=== PATIENT | male | born 1975 | race Caucasian/White ===

== ENCOUNTER 2024-04-25 01:43 | Emergency (ER) | payer BC, OTHER ==
[~2024-04-25] VITALS: Ht 180.3 cm; Wt 74.8 kg
[2024-04-25] MEDS ORDERED: ALPR0.255 PO (01:57)
[2024-04-25] MEDS ORDERED: METO-356 PO (01:57)
[2024-04-25 02:40] LABS: BASOPHILS % (AUTO) 0.4 % (0.0-2.0); EOSINOPHILS # (AUTO) 0.1 K/uL (0.0-0.7); EOSINOPHILS % (AUTO) 0.8 % (0.0-7.0); HEMATOCRIT 39.8 % (36.7-47.1); HEMOGLOBIN 13.7 g/dL (12.5-16.3); LYMPHOCYTES # (AUTO) 1.6 K/uL (0.8-4.8); LYMPHOCYTES % (AUTO) 20.4 % (20.5-51.5); MEAN CORPUSCULAR HEMOGLOBIN 31.2 uug (23.8-33.4); MEAN CORPUSCULAR HGB CONC 35 g/dL (32.5-36.3); MEAN CORPUSCULAR VOLUME 90.6 fL (73.0-96.2); MONOCYTES # (AUTO) 0.7 K/uL (0.1-1.30); MONOCYTES % (AUTO) 8.6 % (0.0-11.0); NEUTROPHILS # (AUTO) 5.4 K/uL (1.8-8.9); NEUTROPHILS % (AUTO) 69.8 % (38.5-71.5); PLATELET COUNT (AUTO) 169 K/uL (152-348); RED BLOOD CELL COUNT(AUTO) 4.39 MIL/uL (4.06-5.63); RED CELL DISTRIBUTION WIDTH 13.1 % (12.1-16.2); WHITE BLOOD COUNT (AUTO) 7.7 K/uL (3.6-10.2)
[2024-04-25 02:47] LABS: DIFFERENTIAL COMMENT 1
[2024-04-25 02:49] LABS: MAGNESIUM 2.2 mg/dL (1.8-2.4)
[2024-04-25 02:53] LABS: CALCIUM 9.5 mg/dL (8.5-10.1); CARBON DIOXIDE 27 mmol/L (21-32); CHLORIDE 105 mmol/L (98-107); CREATININE 0.9 mg/dL (0.6-1.3); GLUCOSE 81 mg/dL (74-106); POTASSIUM 3.8 mmol/L (3.5-5.1); SODIUM SERUM 142 mmol/L (136-145); UREA NITROGEN, BLOOD 12 mg/dL (7-18)
[2024-04-25 03:02] LABS: ALANINE AMINOTRANSFERASE 22 U/L (16-63); ALBUMIN 3.8 g/dL (3.4-5.0); ALKALINE PHOSPHATASE 83 U/L (50-136); ASPARTATE AMINOTRANSFERASE 13 U/L (15-37); BILIRUBIN,DIRECT 0.1 mg/dL (0.0-0.2); BILIRUBIN,TOTAL 0.2 mg/dL (0.2-1.0); TOTAL PROTEIN, SERUM 6.8 g/dL (6.4-8.2)
[2024-04-25 03:18] LABS: THYROID STIMULATING HORMONE 1.516 mIU/mL (0.358-3.740)
[2024-04-25 03:59] VITALS: BP 134/76; TEMP 97.7; O2SAT 98
== END 2024-04-25 03:40 | disposition home or self-care (01) ==
LOC: ER 01:48
DX: R00.2 Palpitations (principal); Z79.899 Other long term (current) drug therapy; Z60.2 Problems related to living alone
CPT/HCPCS: 36415; 71045; 83735; 84443; 84484; 85025; 85730; 93005; A4606; A4663

== ENCOUNTER 2025-06-25 09:26 | Emergency (ER) | payer BC, OTHER ==
[~2025-06-25] VITALS: Ht 180.3 cm; Wt 81.6 kg
[~2025-06-25 09:26] MED LIST: ALPR0.255 PO; METO-356 PO
[2025-06-25 09:40] VITALS: BP 133/82
[2025-06-25] MEDS ORDERED: FLUORESCEIN SODIUM 1 MG STRIP ONE (09:52)
[2025-06-25] MEDS ORDERED: TETRACAINE HCL 2% TOP SOLUTION 30 ML BOTTLE TP ONE (10:30)
[2025-06-25] MEDS ORDERED: TETRACAINE HCL 0.5% OPHT DROP 2 ML BOTTLE ONE (10:34)
[2025-06-25] MEDS ORDERED: GENT5DRO4 EACHEYE (10:48)
[2025-06-25 11:00] VITALS: BP 120/80; TEMP 207.7; O2SAT 97
== END 2025-06-25 11:03 | disposition home or self-care (01) ==
LOC: ER 09:26
DX: H10.9 Unspecified conjunctivitis (principal); K21.9 Gastro-esophageal reflux disease without esophagitis; Z79.899 Other long term (current) drug therapy; Z86.69 Personal history of other diseases of the nervous system and sense organs; Z60.2 Problems related to living alone
CPT/HCPCS: A4606; A4663; J3590